=== PATIENT | female | born 1975 | race Caucasian/White ===

== ENCOUNTER 2016-07-23 21:17 | Emergency (ER) | payer OTHER ==
--- NOTE | ~2016-07-23 | CR126 ---
[facility] of [facility] RADIOLOGY TEXT RESULTS PATIENT: CARLOS ALBERTO ARAIZA LOCATION: SED : 77 UNIT #: [id number] AGE: [address]: Myrna Gilbert PAC SEX: F ORDER DR: [id number] [address] [address] [id number] E MR#: [id number] Acc #: [id number] NAME: CARLOS ALBERTO ARAIZA. : 1975 SEX: F STUDY DATE/TIME: 07/23/2016 20:57 UNIT: SED ROOM: STUDY DESCRIPTION: CR Foot Complete Min 3 View Lt Attending Physician: Myrna Gilbert Pa-C Ordering Physician: Myrna Gilbert Pa-C Primary Care Physician: Macie Toussaint M.D. MEDICAL IMAGING REPORT This report is preliminary unless electronic signature is present. EXAM Left foot. DATE OF EXAM 07/23/2016 INDICATIONS 40-year-old female with pain for the last week in the left foot. No known injury. REPORT 3 views of the left foot. COMPARISON No comparisons. FINDINGS The examination is negative. No acute fracture identified. Soft tissues within normal limits. Joint spaces preserved. IMPRESSION 1. Negative. Dictated by... Stu Villela M.D. THIS IS AN ELECTRONICALLY VERIFIED REPORT Stu Villela M.D. at 07/23/2016 10:25 PM ARIEL/cassie TD: 07/23/2016 22:04 JOB #: [id number] [facility] Service [facility] RADIOLOGY TEXT RESULTS PATIENT: CARLOS ALBERTO ARAIZA LOCATION: SED : 77 UNIT #: [id number] AGE: [address]: Myrna Gilbert PAC SEX: F ORDER DR: MEDICAL IMAGING REPORT Page 1 of 1
[~2016-07-23 21:17] MED LIST: ATIVAN2 M1 PO; B COMPLEX1 CA1 PO; BACTRIM DS TABL1 TA1 PO; BACTRIM DS TABL1 TAB PO; BACTROBAN15 GM TOP; BENADRYL PO; CELEXA PO; DILAUDID2 MG PO; DOXEPIN; ESTROGEN PO; FIORICET PO; FLEXERIL; FLEXERIL PO; FLEXERIL10 M1 PO; HORMONE PILL; HYDROCODON-ACE1 EAC9 PO; KEFLEX PO; KEFLEX500 MG PO; LORTAB 7.5-5001 TAB PO; MOBIC PO; MOBIC15 MG PO; NAPROXEN PO; NEURONTIN600 MG PO; NEXIUM PO; PHENERGAN PO; PHENERGAN25 M1 PO; PRILOSEC PO; ROBAXIN500 MG PO; TOPAMAX200 MG PO; TRAMADOL PO; TYLENOL #3 PO; TYLOX 5/500 CAP1 CAP PO; VICODIN 5/500 T1 TAB PO; VOLTAREN75 MG PO; ZANTAC PO; ZANTAC150 M1 PO; [UNRECOGNIZED DRUG - REMARK] PO
== END 2016-07-23 21:55 | disposition home or self-care (01) ==
LOC: SED 21:17
DX: M25.572 Pain in left ankle and joints of left foot (principal); F41.9 Anxiety disorder, unspecified; F17.210 Nicotine dependence, cigarettes, uncomplicated; Z88.5 Allergy status to narcotic agent; Z88.8 Allergy status to other drugs, medicaments and biological substances; Z79.899 Other long term (current) drug therapy
CPT/HCPCS: 73630; 99283

== ENCOUNTER 2016-07-27 18:37 | Emergency (ER) | payer OTHER ==
[2016-07-27 19:04] LABS: BASOPHIL# 0.1 X10e3 (0-0.3); BASOPHIL% 1.1 % (0-2.5); EOSINOPHIL# 0.5 X10e3 (0-0.7); EOSINOPHIL% 5.2 % (0.0-7.0); HEMATOCRIT 38.1 % (35.0-45.0); HEMOGLOBIN 12.8 gm/dL (12.0-16.0); LYMPHOCYTE# 3.3 X10e3 (1.0-3.5); LYMPHOCYTE% 37.4 % (17.0-45.0); MEAN CELL VOLUME 89.9 FL (83-96); MEAN CORPUSCULAR HEMOGLOBIN 30.3 PG (28-34); MEAN CORPUSCULAR HGB CONC 33.7 g/dL (30-36); MONOCYTE# 0.5 X10e3 (0-1.0); MONOCYTE% 5.8 % (3.0-12.0); NEUTROPHIL# 4.4 X10e3 (1.5-7.1); NEUTROPHIL% 50.5 % (40-75); PLATELET COUNT 250 X10e3 (140-420); RED BLOOD COUNT 4.24 X10e (3.90-5.30); RED CELL DISTRIBUTION WIDTH 13.1 % (11.0-15.5); WHITE BLOOD COUNT 8.7 X10e3 (4.0-10.5)
[2016-07-27 19:05] LABS: DIFF IND NO
[2016-07-27 19:22] LABS: INR 0.9; PARTIAL THROMBOPLASTIN TIME 24.9 SECONDS (23.5-31.3); PROTHROMBIN TIME (PATIENT) 9.8 SECONDS (9.6-11.5)
[2016-07-27 19:27] LABS: BUN/CREATININE RATIO 16.25; CREATININE SERUM 0.8 mg/dL (0.6-1.4); POTASSIUM 3.7 mmol/L (3.5-5.1); URIC ACID 3.5 mg/dL (2.6-7.2)
== END 2016-07-27 20:10 | disposition home or self-care (01) ==
LOC: CED 18:37
PROVIDERS: Emergency Medicine
DX: M79.81 Nontraumatic hematoma of soft tissue (principal); K21.9 Gastro-esophageal reflux disease without esophagitis; F41.9 Anxiety disorder, unspecified; Z90.49 Acquired absence of other specified parts of digestive tract; Z90.710 Acquired absence of both cervix and uterus
CPT/HCPCS: 29515; 36415; 80048; 84550; 85025; 85610; 85730; 99283

== ENCOUNTER → 2016-07-29 | Outpatient (CLI) | payer OTHER ==
--- NOTE | ~2016-07-29 | US85 ---
[facility] A Service [facility] RADIOLOGY TEXT RESULTS PATIENT: CARLOS ALBERTO ARAIZA LOCATION: [facility] : [birth year] UNIT #: [id number] AGE: [address]: Alonso Brown MD SEX: F ORDER DR: [id number] [facility] [address] [place], [place] [address] [id number] O MR#: [id number] Acc #: [id number] NAME: CARLOS ALBERTO ARAIZA. : 1975 SEX: F STUDY DATE/TIME: 07/29/2016 19:08 UNIT: [facility] ROOM: STUDY DESCRIPTION: [facility] Attending Physician: Alonso Brown M.D. Ordering Physician: Alonso Brown M.D. Primary Care Physician: Macie Toussaint M.D. MEDICAL IMAGING REPORT This report is preliminary unless electronic signature is present EXAM Left lower extremity venous duplex. 07/29/2016. HISTORY Left lower extremity pain and swelling for 2 weeks. Evaluate for deep vein thrombosis. TECHNIQUE Venous ultrasound examination of the left lower extremity was performed using grayscale, spectral Doppler and color flow Doppler imaging. FINDINGS The examination is negative. There is no evidence of left lower extremity deep venous thrombus from the groin to the lower calf. Visualized greater saphenous vein is also patent. IMPRESSION Negative examination. No evidence of left lower extremity deep venous thrombosis. Dictated by... Jose Grant M.D. THIS IS AN ELECTRONICALLY VERIFIED REPORT Jose Grant M.D. at 07/31/2016 8:29 AM KRT/keon TD: 07/30/2016 09:42 JOB #: [id number] MEDICAL IMAGING REPORT [facility] A Service [facility] RADIOLOGY TEXT RESULTS PATIENT: CARLOS ALBERTO ARAIZA LOCATION: [facility] : [birth year] UNIT #: [id number] AGE: [address]: Alonso Brown MD SEX: F ORDER DR: Page 1 of 1 COPY
== END | disposition home or self-care (01) ==
LOC: CRAD 18:36
DX: M79.672 Pain in left foot (principal); L81.9 Disorder of pigmentation, unspecified
CPT/HCPCS: 93971

== ENCOUNTER → 2016-07-30 | Outpatient (CLI) | payer OTHER ==
--- NOTE | ~2016-07-30 | US136 ---
[facility] A Service of [facility] RADIOLOGY TEXT RESULTS PATIENT: CARLOS ALBERTO ARAIZA LOCATION: [facility] : [birth year] UNIT #: [id number] AGE: [address]: Macie Toussaint MD SEX: F ORDER DR: [id number] [facility] [address] [place], [place] [address] [id number] O MR#: [id number] Acc #: [id number] NAME: CARLOS ALBERTO ARAIZA. : 1975 SEX: F STUDY DATE/TIME: 07/30/2016 16:12 UNIT: [facility]IV ROOM: STUDY DESCRIPTION: US U/L Ext Art Study Ltd Bil Attending Physician: Macie Toussaint M.D. Referring Physician: Macie Toussaint M.D. Ordering Physician: Macie Toussaint M.D. Primary Care Physician: Macie Toussaint M.D. MEDICAL IMAGING REPORT This report is preliminary unless electronic signature is present EXAM Ankle to brachial indices HISTORY Left leg pain and swelling FINDINGS The right brachial pressure is 145 and the left brachial pressure is 133. The right dorsalis pedis pressure is 170, posterior tibial 165, and toe 141, for an ankle to brachial index of 1.17. The left dorsalis pedis pressure is 108, posterior tibial 120 and toe 124, for an ankle to brachial index of 0.83. Doppler waveform analysis indicates a triphasic signal in the posterior tibial and dorsalis pedis arteries on the right and a biphasic signal in the posterior tibial and dorsalis pedis arteries on the left. Pulse volume recording tracings demonstrate dampening of the amplitude of the signal at the digital level on the left side compared to the right. IMPRESSION Normal perfusion to the right leg with an ankle to brachial index of 1.17. Mild ischemia of the left leg with an ankle to brachial index of 0.83. Dictated by... Pepe Felder M.D. THIS IS AN ELECTRONICALLY VERIFIED REPORT [facility] A Service of [facility] RADIOLOGY TEXT RESULTS PATIENT: CARLOS ALBERTO ARAIZA LOCATION: [facility] : [birth year] UNIT #: [id number] AGE: [address]: Macie Toussaint MD SEX: F ORDER DR: Pepe Felder M.D. at 07/31/2016 7:43 AM SBS/to TD: 07/30/2016 20:09 JOB #: [id number] MEDICAL IMAGING REPORT Page 1 of 1 COPY
== END | disposition home or self-care (01) ==
LOC: CNIV 15:58
DX: M79.89 Other specified soft tissue disorders (principal); M79.605 Pain in left leg; I99.8 Other disorder of circulatory system
CPT/HCPCS: 93922

== ENCOUNTER → 2016-08-12 | Outpatient (CLI) | payer OTHER | END | disposition home or self-care (01) | LOC: CLAB 10:59 | DX: I73.9 Peripheral vascular disease, unspecified (principal); R09.89 Other specified symptoms and signs involving the circulatory and respiratory systems; Z72.0 Tobacco use | CPT/HCPCS: 36415; 84520 ==